=== PATIENT | male | born 1980 | race Caucasian/White ===

== ENCOUNTER → 2017-04-11 | Outpatient (CLI) | payer BC ==
[~2017-04-11] MED LIST: GADOBUTROL 10 ML VIAL IVP ONE
== END ==
LOC: FIMAGING 07:00
PROVIDERS: ATTEND Family Medicine
DX: R23.2 Flushing (principal); R82.5 Elevated urine levels of drugs, medicaments and biological substances
CPT/HCPCS: A9585